=== PATIENT | male | born 1980 | race Caucasian/White ===

== ENCOUNTER → 2018-04-04 | Outpatient (CLI) | payer OTHER ==
--- NOTE | 2018-04-05 16:26 | XR ---
EXAMINATION TYPE: XR knee complete RT DATE OF EXAM: 04/04/2018 COMPARISON: NONE HISTORY: 37-year-old male right knee pain TECHNIQUE: 3 views FINDINGS: Trace knee joint effusion likely physiologic. There is mild anterior soft tissue swelling. Extensor m echanism is intact. No acute fracture, subluxation, or dislocation. IMPRESSION: Some mild anterior soft tissue swelling. Trace knee joint effusion likely physiologic. No acute osseo us abnormality seen.
== END | disposition home or self-care (01) ==
LOC: RADXRMAIN 10:01
PROVIDERS: ATTEND Family Medicine
DX: M79.89 Other specified soft tissue disorders (principal)